=== PATIENT | male | born 1955 | race Caucasian/White ===

== ENCOUNTER 2020-09-21 12:18 | Emergency (ER) | payer MEDICARE, SELFPAY ==
[2020-09-21 12:20] VITALS: BP 139/80; PULSE 62; RESP 16; TEMP 36.2; O2SAT 96; BMI 32.5
--- NOTE | 2020-09-21 12:32 | EKG12_ITS ---
Test Reason : PALPITATIONS Blood Pressure : / mmHG Vent. Rate : 069 BPM Atrial Rate : 069 BPM P-R Int : 192 ms QRS Dur : 098 ms QT Int : 388 ms P-R-T Axes : 056 084 045 degrees QTc Int : 415 ms Normal sinus rhythm Normal ECG Confirmed by CARSON SALAS, OLEGARIO ([id number]), make up editor JEFF ESPINOZA ([id number]) on 09/24/2020 10:56:52 AM Referred By: JAY Confirmed By:OLEGARIO BYRD MD
--- NOTE | 2020-09-21 12:40 | RAD_ITS ---
STUDY: X-RAY CHEST REASON FOR EXAM: Male, 65 years old. Chest pain and palpitations TECHNIQUE: Single AP portable view of the chest. COMPARISON: None. FINDINGS: EKG electrodes are seen. Hyperinflation. Mild increased linear markings at the lung bases suggestive of either linear atelectasis and/or scarring. There is no demonstrated pleural abnormality. Normal size heart. Normal mediastinum and franci. Normal visualized pulmonary arteries. Normal visualized aortic arch and descending thoracic aorta. There are degenerative changes of the visualized thoracic spine. Normal visualized ribs, clavicles, and shoulders. Hiatal hernia. RAD/Chest 1 View (Portable) IMPRESSION: Hyperinflation. Mild increased linear markings at the lung bases suggestive of linear atelectasis and/or scarring. Hiatal hernia. Electronically Signed: Julio Leigh MD at 12:58 EST , Service support ,
--- NOTE | 2020-09-21 12:40 | ED.VIS.GEN ---
History of Present Illness Chief Complaint: Palpitations Detail of Chief Complaint: Patient also complains of chest discomfort and nausea Informant: Patient, Significant Other Onset: Yesterday - Yesterday he complained of palpitations. He thought this was due to the fact that he drinks 2 cups of coffee with caffeine shots. He states he had 600 mg of caffeine. He went on a bicycle ride. He does not develop central chest discomfort. He thought it was his GERD since his doctor would not r Context: Sudden Onset Timing: Intermittent Quality: Indigestion 2 discomfort Location: Central chest Current Severity: - - Presently no discomfort Maximum Severity: Moderate Worsened by: Cycling. Letter Relieved by: Nothing Associated Symptoms: He did experience nausea borderline. Narrative: Patient is a 65-year-old active male with history of GERD and father had cardiac event at age 58 and 68 requiring operative intervention. He is a non-smoker. He bicycle rides daily. Yesterday he did 40 miles. He denies symptoms of claudication. He attributed the discomfort he experiences in his chest while bicycling to GERD. There was no radiation. He denied diaphoresis. He has had nausea and nausea may be independent of the chest discomfort. He denies black or maroon-colored stool. He denies bruising easily. Patient denied upper respiratory symptoms. Patient denied visual, ocular auditory symptoms. Patient did not think much of the chest discomfort because he states it was not what he was told would be heart pain. Prior similar symptoms: Yes - Chest pain intermittently for a couple of weeks Recent Illness/Hospitalization: No - Past Medical History (1) History of gastroesophageal reflux (GERD) Status: Acute Past Medical History - Allergies and Home Meds Allergies/Adverse Reactions: Allergies latex Adverse Reaction (Verified 09/21/20 12:20) Rash Primary Care Physician: Damaris Gee MD [Primary Care Provider] - Surgical History: noncontributory Lives: Spouse/ Significant Other Smoking Status: Never smoker Alcohol: Rare Drugs: None Review of Systems General: Denies: Chills, Fever, Malaise, Subjective Eyes: Denies: Visual changes - bilaterally, Blurred Vision - bilaterally ENT: Denies: Bilateral ear pain, Rhinorrhea, Sore throat Cardiovascular: Reports: Chest pain, Palpitations. Denies: Heart racing Respiratory: Reports: Dyspnea - With extreme exertion. Denies: Cough, Sputum, Dyspnea on exertion, Orthopnea, Paroxysmal nocturnal dyspnea Gastrointestinal: Reports: Nausea. Denies: Abdominal pain, Vomiting, Diarrhea, Constipation, Melena, Hematochezia, -, - Genitourinary: Denies: Dysuria, Hematuria, Frequency Musculoskeletal: Denies: Myalgias, Arthralgias, Neck pain, Back pain, Swelling, Extremity Pain, -, - Skin: Denies: Rash, Wounds Neurological: Denies: Headache, Weakness Hematologic: Denies: Easy bruising, Easy bleeding Physical Exam Vital Signs/Narrative: Vital Signs Temp Pulse Resp BP Pulse Ox 09/21/20 12:20 97.2 F L 62 16 139/80 H 96 Inital Vital Signs reviewed: Yes General: Well nourished, Well developed, No Acute Distress Head: Normocephalic, Atraumatic Eyes: Perrl, EOMI. Negative for: Pale conjunctiva, Scleral icterus ENT: Moist mucous membranes, No rhinorrhea Neck: Supple, Nontender, No lymphadenopathy, No JVD Cardiovascular: Regular rate, Regular rhythm, No murmurs, Normal S1, Normal S2 Respiratory: No distress, CTA bilaterally, Chest nontender Abdomen: Soft, Nontender, Nondistended, Normal bowel sounds, No masses Rectal: Deferred Back: Nontender, Normal Inspection Extremities: Nontender, No edema. Negative for: Tenderness, Edema, Calf Tenderness Skin: Normal color, No rash, Diaphoresis, No Trauma. Negative for: Cyanosis, Jaundice Neurological: Alert, Oriented x3, Cranial nerves II-XII grossly intact, Normal Strength, Normal Sensation, Normal Gait Psychological: Normal affect Diagnostic/Tx/Re-eval Chest X-Ray - ED: 1 View, Read by ED Physician, Normal, Heart, Mediastinum, Bony Structures, No Acute Disease, - - There is evidence of hyper aeration and hiatal hernia. Impressions Chest X-Ray 09/21/20 12:40 IMPRESSION: Hyperinflation. Mild increased linear markings at the lung bases suggestive of linear atelectasis and/or scarring. Hiatal hernia. Electronically Signed: Julio Leigh MD at 12:58 EST , Service support , 09/21/20 12:40 Chest 1 View (Portable) [RAD] Stat Laboratory Results 09/21/20 09/21/20 09/21/20 12:35 12:35 12:35 WBC 5.7 RBC 4.65 Hgb 12.0 L Hct 39.4 L MCV 84.7 MCH 25.8 L MCHC 30.5 L RDW Std Deviation 44.4 H RDW Coeff of Jeremy 14.5 Plt Count 221 MPV 10.1 Immature Gran % (Auto) 0.000 Neut % (Auto) 55.7 Lymph % (Auto) 29.5 Miller % (Auto) 10.1 H Eos % (Auto) 4.2 Baso % (Auto) 0.5 Absolute Neuts (auto) 3.2 Absolute Lymphs (auto) 1.69 Nucleated RBC % 0 Sodium 142 Potassium 4.4 Chloride 108 H Carbon Dioxide 32.0 Anion Gap 2 L BUN 20 H Creatinine 1.16 Estim Creat Clear Calc 62.64 Est GFR (MDRD) Af Amer 81 Est GFR (MDRD) Non-Af 67 BUN/Creatinine Ratio 17.2 Glucose 86 Calcium 9.4 Troponin I < 0.015 B-Natriuretic Peptide 12.6 - EKG Initial EKG Interpretation: Sinus Rhythm - Normal sinus rhythm with a ventricular rate of 69. AL interval 292 ms. QS duration is 98 ms. QT duration 388 ms. [place] is normal. The EKG is normal. - Medical Decision Making Tach patient's palpitations or irregular heartbeat probably is due to the significant amount of caffeine he ingested prior to cycling. The chest discomfort with extreme exertion may represent exertional angina. This may also represent other causes i.e. GERD, pulmonary. Work-up included EKG, chest x-ray, CBC to rule out anemia, BMP to assess renal function and troponin. 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 ED Disposition - Plan for ED Patient: Disposition: Home or Assisted Living Diagnosis: Chest pain, Palpitations with regular cardiac rhythm Instructions: ED Palpitations, ED Chest Pain, Uncertain Cause Referrals: Damaris Gee MD [Primary Care Provider] - 3-5 Days
[2020-09-21 12:42] LABS: Absolute Lymphocyte Count 1.69 X10^3/uL (0.83-4.51); Absolute Neutrophil Count 3.2 X10^3/uL (2.0-7.7); Basophil# 0.03 X10^3/uL; Basophil% 0.5 % (0-1); Eosinophil# 0.24 X10^3/uL; Eosinophils% 4.2 % (0-5); Hematocrit 39.4 % (40-54); Lymphocyte # 1.69 X10^3/ul (4.0); Lymphocyte % 29.5 % (19-41); Mean Corp Hgb Conc 30.5 g/dL (32-36); Mean Corpuscular Hgb 25.8 pg (27.0-32.0); Mean Corpuscular Volume 84.7 fL (80-94); Mean Platelet Vol. 10.1 fl (6.2-12.0); Monocyte# 0.58 X10^3/uL; Monocyte% 10.1 % (0-10); NRBC Flagged by Analyzer 0 % (0-5); Neutrophil # 3.19 X10^3/uL (2.7-7.7); Neutrophil % 55.7 % (47-70); Platelet Count 221 K/mm3 (150-450); RBC Distribution Width CV 14.5 % (11.6-14.6); RBC Distribution Width SD 44.4 fl (35.1-43.9); Red Blood Count 4.65 M/mm3 (4.6-6.2); White Blood Count 5.7 K/mm3 (4.4-11.0)
[2020-09-21 13:04] LABS: Anion Gap 2 (5-15); BUN 20 mg/dL (7-18); BUN/Creat Ratio 17.2 RATIO (10-20); Calcium,Total 9.4 mg/dL (8.5-10.1); Chloride 108 mmol/L (98-107); Creatinine, Serum 1.16 mg/dL (0.70-1.30); EST Glomerular Filtration Rate 67 mL/min (>60); Est Glom Filt Rate - Afr Amer 81 mL/min (>60); Estimated Creatinine Clearance 62.64 ml/min; Glucose 86 mg/dL (74-106); Potassium 4.4 mmol/L (3.5-5.1); Sodium Level 142 mmol/L (136-145)
[2020-09-21 13:28] LABS: BNP,B-Type NATRIURETIC PEPTIDE 12.6 pg/mL (0-100)
[2020-09-21 14:15] VITALS: BP 119/76; PULSE 57; RESP 14; O2SAT 95
== END 2020-09-21 14:15 | disposition home or self-care (01) ==
PROVIDERS: Emergency Provider Emergency Medicine; PCP Internal Medicine
DX: R00.2 Palpitations (principal); R07.89 Other chest pain; R06.00 Dyspnea, unspecified; K21.9 Gastro-esophageal reflux disease without esophagitis
CPT/HCPCS: 71045; 80048; 83880; 84484; 85025; 93005; 99284; A4216

== ENCOUNTER 2021-06-07 10:19 | Emergency (ER) | payer MEDICARE, SELFPAY ==
[2021-06-07 10:20] VITALS: BP 161/84; PULSE 61; RESP 18; TEMP 36.6; O2SAT 99; BMI 33.6
--- NOTE | 2021-06-07 10:36 | EKG12_ITS ---
Test Reason : SOB Blood Pressure : / mmHG Vent. Rate : 059 BPM Atrial Rate : 059 BPM P-R Int : 198 ms QRS Dur : 096 ms QT Int : 406 ms P-R-T Axes : 052 088 043 degrees QTc Int : 401 ms Sinus bradycardia Otherwise normal ECG Confirmed by TRINA SALAS, RAJIV ([id number]), editor managing director JEFF ESPINOZA ([id number]) on 06/10/2021 10:59:32 AM Referred By: ANGELA Confirmed By:RAJIV MENA MD
--- NOTE | 2021-06-07 10:36 | CT_ITS ---
STUDY: CT CHEST WITHOUT CONTRAST REASON FOR EXAM: Male, 66 years old. Aspiration. Chest pain with deep inspiration. RADIATION DOSAGE (If Supplied By Facility): CTDIvol = ( 15.44 ) mGy, DLP = ( 617.41 ) mGycm TECHNIQUE: Transaxial imaging was performed without the administration of intravenous contrast material. Multiplanar coronal and sagittal images were reformatted. Individualized dose optimization techniques were used for this CT. COMPARISON: None. FINDINGS: Mild atelectasis and/or early infiltrate at the right lung base. Mild increased linear markings at the left lung base. There is no demonstrated pleural abnormality. There are calcifications of the coronary arteries. There are multiple small lymph nodes within the mediastinum, which are normal in size and morphology most compatible with reactive lymph hyperplasia. Normal hilar regions. Normal unenhanced pulmonary arteries. Normal aorta arch and descending thoracic aorta. There are degenerative changes of the thoracic spine. Moderate sized hiatal hernia. CT/Chest without Contrast IMPRESSION: Atelectasis and/or early infiltrate in the posterior medial segment of the right lower lobe. Mild increased linear markings at the left lung base suggestive of linear scarring. Hiatal hernia. Electronically Signed: Julio Leigh MD at 11:22 EDT , Service support ,
--- NOTE | 2021-06-07 10:37 | EDS_ITS ---
HPI History of Present Illness Chief Complaint: Shortness of Breath Detail of Chief Complaint: Coughing after aspiration Informant: patient Onset/Context/Timing Onset: Yesterday Current Severity: Moderate Maximum Severity: Moderate Narrative Narrative: Patient presents secondary to continued coughing and shortness of breath after aspirating. Patient states he started choking while eating dinner last evening. He feels like he aspirated. He has pain in his chest from coughing and states he has to breathe and short breaths. He states he cannot take a deep breath without coughing. He called his PCPs office today who directed him to the emergency room. He denies fever or chills. [facility] Medical History Depression GERD (gastroesophageal reflux disease) High cholesterol Home Medications atorvastatin 80 mg PO DAILY 09/21/20 [History Last Taken Unknown] bupropion HCl 450 mg PO DAILY 09/21/20 [History Last Taken Unknown] escitalopram oxalate 20 mg PO DAILY 09/21/20 [History Last Taken Unknown] wnxirjqv-kec-HS-lycopen-lutein 1 ea PO DAILY 09/21/20 [History Last Taken Unknown] omeprazole magnesium 20 mg PO DAILY 09/21/20 [History Last Taken Unknown] amoxicillin-pot clavulanate [Augmentin] 1 tab PO BID #20 tab 06/07/21 [Rx Last Taken Unknown] metronidazole 500 mg PO Q8H 10 Days #30 tab 06/07/21 [Rx Last Taken Unknown] Allergy/AdvReac Type Severity Reaction Status Date / Time latex AdvReac Rash Verified 06/07/21 10:22 Social History Smoking Status: Never smoker ROS ROS ED Constitutional Constitutional ED: Denies chills or fever(s) Eyes Eyes: Denies change in vision ENT ENT ED: Denies sore throat Cardiovascular Cardiovascular: Reports chest pain Respiratory/Chest Respiratory/Chest: Reports cough and dyspnea Gastrointestinal Gastrointestinal: Denies abdominal pain, diarrhea, nausea or vomiting Genitourinary Genitourinary ED: Denies dysuria Musculoskeletal Musculoskeletal: Denies back pain Integumentary Denies rash Neurologic Neurologic: Denies headache(s) or weakness Allergic/Immunologic Allergic/Immunologic ED: Denies urticaria EXAM Physical Exam Const Vital Signs: 06/07/21 10:20 06/07/21 10:47 Temperature 97.8 F Temperature Source Temporal Pulse Rate 61 Respiratory Rate 18 Respiratory Effort Normal Non-Labored Respiratory Depth Normal Respiratory Pattern Normal Blood Pressure 161/84 H Blood Pressure Mean 109 Pulse Ox 99 Oxygen Delivery Method Room Air Room Air Positive well nourished and well developed General Appearance ED: well developed HEENT Reports moist mucous membranes Eyes PERRL and EOMs intact bilaterally Chest Wall inspection of chest normal and palpation of chest normal Resp normal respiratory effort and clear to auscultation bilaterally Cardio regular rate and regular rhythm GI normal to inspection, nondistended, normoactive bowel sounds and non-tender Palpation: soft Extremity normal to inspection Neuro oriented x3 Sensorium / Orientation: alert Psych mental status grossly normal Skin no rashes or lesions noted MDM MDM MDM Narrative Medical decision making narrative: EKG was obtained. CT chest ordered. Radiography Diagnostic Testing: Clinical Impression(s) from Imaging Studies Chest CT 06/07/21 10:36 IMPRESSION: Atelectasis and/or early infiltrate in the posterior medial segment of the right lower lobe. Mild increased linear markings at the left lung base suggestive of linear scarring. Hiatal hernia. Electronically Signed: Julio Leigh MD at 11:22 EDT , Service support , EKG Initial EKG: Attestation: I personally reviewed and interpreted this EKG as follows: Interpretation: Sinus Bradycardia (Sinus bradycardia 59 bpm. No acute ischemia.) Treatment and Re-Evaluation Comments:: CT chest reveals atelectasis or early infiltrate in the right lower lobe. Patient be treated with Augmentin and Flagyl. No obvious foreign bodies noted in the main airways. Return instructions are provided. Discharge Plan Triage Chief Complaint: Shortness of Breath ED Provider: Alexsandra Hannah Dx/Rx/DC Orders Clinical Impression: Aspiration pneumonia Instructions: ED Pneumonia (Adult) Prescriptions: New amoxicillin-pot clavulanate [Augmentin] 875-125 mg tablet 1 tab PO BID Qty: 20 RF: 0 metronidazole 500 mg tablet 500 mg PO Q8H 10 Days Qty: 30 RF: 0 No Action atorvastatin 80 MG tablet 80 mg PO DAILY RF: 0 escitalopram oxalate 20 MG tablet 20 mg PO DAILY RF: 0 omeprazole magnesium 20 MG tablet,delayed release (DR/EC) 20 mg PO DAILY RF: 0 bupropion HCl 150 MG tablet extended release 24 hr 450 mg PO DAILY RF: 0 eoxkfitw-ssc-SO-lycopen-lutein 1 EACH tablet 1 ea PO DAILY RF: 0 Primary Care Provider: Damaris Gee Referrals: Damaris Gee MD [Primary Care Provider] - 1-2 Weeks Disposition Disposition: Home, Self Care
[2021-06-07 10:47] VITALS: O2SAT 98
[2021-06-07 12:36] VITALS: BP 122/85; PULSE 55; RESP 16; O2SAT 98
[2021-06-07] MEDS: Amox/Clavulanate 875 MG Tablet PO (12:36)
[2021-06-07] MEDS: metroNIDAZOLE 500 MG Tablet PO (12:36)
== END 2021-06-07 12:37 | disposition home or self-care (01) ==
PROVIDERS: Emergency Provider Emergency Medicine; PCP Internal Medicine
DX: J69.0 Pneumonitis due to inhalation of food and vomit (principal); E78.00 Pure hypercholesterolemia, unspecified; K21.9 Gastro-esophageal reflux disease without esophagitis; F32.A Depression, unspecified; Z79.899 Other long term (current) drug therapy
CPT/HCPCS: 71250; 93005; 99285

== ENCOUNTER 2022-02-03 09:15 | Emergency (ER) | payer MEDICARE, SELFPAY ==
[2022-02-03 09:16] VITALS: BP 156/82; PULSE 71; RESP 20; TEMP 37.3; O2SAT 96; BMI 32.5
[2022-02-03 09:19] VITALS: BP 156/82; PULSE 69; RESP 14; TEMP 37.3; O2SAT 96
--- NOTE | 2022-02-03 09:28 | EX.ED.DYSGE1 ---
HPI History of Present Illness Chief Complaint: Confusion Informant: patient and spouse/S.O. Narrative Narrative: 67-year-old male presenting to the emergency department with a chief complaint of confusion. Patient traveled to [facility] last week and returned home yesterday. While traveling he tested positive for COVID-19. His was previously positive earlier in the week. Patient notes a cough some nasal congestion. What concerns him the most is confusion. He called the nurses line and while he was doing well they did note some confusion. Patient reports being in a fog light state. He states that he gets pneumonia quite frequently and would like some broad-spectrum antibiotics because the bacteria typically goes from his nose into his bronchial tubes. [facility] Medical History Back pain COVID Depression GERD (gastroesophageal reflux disease) High cholesterol Home Medications atorvastatin 80 mg tablet 80 mg PO DAILY 09/21/20 [History Last Taken Unknown] bupropion HCl 150 mg 24 hr tablet, extended release 450 mg PO DAILY 09/21/20 [History Last Taken Unknown] escitalopram oxalate 20 mg tablet 20 mg PO DAILY 09/21/20 [History Last Taken Unknown] eyopephr-lfq-awviw acid 300 mcg-lycopene 600 mcg-lutein 300 mcg tablet 1 ea PO DAILY 09/21/20 [History Last Taken Unknown] omeprazole magnesium 20 mg tablet,delayed release 20 mg PO DAILY 09/21/20 [History Last Taken Unknown] amoxicillin 875 mg-potassium clavulanate 125 mg tablet (Augmentin) 1 tab PO BID #20 tabs 06/07/21 [Rx Last Taken Unknown] metronidazole 500 mg tablet 500 mg PO Q8H 10 days #30 tabs 06/07/21 [Rx Last Taken Unknown] Allergy/AdvReac Type Severity Reaction Status Date / Time latex AdvReac Rash Verified 02/03/22 09:21 Social History (Updated 02/03/22 @ 09:[address] Ángel Osborne DO) Smoking Status: Never smoker substance use type: does not use ROS ROS ED Constitutional Constitutional ED: Reports chills and fever(s); Denies weight loss Eyes Eyes: Denies change in vision or diplopia ENT ENT ED: Reports rhinorrhea; Denies ear pain or sore throat Cardiovascular Cardiovascular: Denies chest pain, orthopnea, palpitations or racing heartbeat Respiratory/Chest Respiratory/Chest: Reports cough; Denies dyspnea or orthopnea Gastrointestinal Gastrointestinal: Denies abdominal pain, diarrhea, nausea or vomiting Genitourinary Genitourinary ED: Denies dysuria, hematuria or urinary frequency Musculoskeletal Musculoskeletal: Denies arthralgias or myalgias Integumentary Denies abscess or rash Neurologic Neurologic: Reports other Details: confusion ; Denies headache(s) or weakness Psychiatric Psychiatric: Denies anxiety, depression, suicidal ideation or suicidal thoughts Endocrine Endocrinology: Denies polydipsia, polyphagia or polyuria Allergic/Immunologic Allergic/Immunologic ED: Denies mouth swelling, tongue swelling or urticaria EXAM Physical Exam Const Vital Signs: 02/03/22 09:16 02/03/22 09:19 Temperature 99.1 F 99.1 F Temperature Source Oral Oral Pulse Rate 71 69 Respiratory Rate 20 H 14 Blood Pressure 156/82 H 156/82 H Blood Pressure Mean 106 106 Pulse Ox 96 96 Oxygen Delivery Method Room Air Room Air Positive well nourished and well developed General Appearance ED: well developed HEENT Reports normocephalic, head/scalp atraumatic and moist mucous membranes Eyes PERRL and EOMs intact bilaterally Neck no lymphadenopathy, supple and no JVD Resp normal respiratory effort and clear to auscultation bilaterally Cardio regular rate, regular rhythm and no murmurs GI normal to inspection, nondistended, normoactive bowel sounds and non-tender Palpation: soft Back/Spine no CVA tenderness and normal ROM Extremity normal to inspection General Extremety ED: Negative for edema General Extremity: Negative for edema Neuro oriented x3 and CN's II-XII intact bilaterally Sensorium / Orientation: alert Motor Exam: strength 5/5 throughout Psych mental status grossly normal Mood & Affect: Negative for depressed or tearful Skin no rashes or lesions noted and no wounds MDM MDM MDM Narrative Medical decision making narrative: My interpretation of the chest x-ray is no acute process. Radiology agrees. Clinically the patient has COVID-19 and reports mild confusion. He is ANO x3. Oxygen levels are normal. I think the patient can be safely discharged home. Following up with primary care as needed return if worsening or concerns Radiography Diagnostic Testing: Clinical Impression(s) from Imaging Studies Chest X-Ray 02/03/22 09:35 IMPRESSION: Normal x-ray examination of the chest. Electronically Signed: Gavino Wagner MD at 10:09 EDT , Discharge Plan Triage Chief Complaint: Confusion ED Provider: Ángel Osborne Dx/Rx/DC Orders Prescriptions: No Action atorvastatin 80 MG tablet 80 mg PO DAILY escitalopram oxalate 20 MG tablet 20 mg PO DAILY omeprazole magnesium 20 MG tablet,delayed release (DR/EC) 20 mg PO DAILY bupropion HCl 150 MG tablet extended release 24 hr 450 mg PO DAILY oaosyzhg-ywb-CG-lycopen-lutein 1 EACH tablet 1 ea PO DAILY amoxicillin-pot clavulanate [Augmentin] 875-125 mg tablet 1 tab PO BID Qty: 20 0RF metronidazole 500 mg tablet 500 mg PO Q8H 10 Days Qty: 30 0RF Primary Care Provider: Damaris Gee Referrals: Damaris Gee MD [Primary Care Provider] -
--- NOTE | 2022-02-03 09:35 | RAD_ITS ---
STUDY: X-RAY CHEST REASON FOR EXAM: Male, 67 years old. cough TECHNIQUE: Single AP portable view of the chest. COMPARISON: 09/21/2020 FINDINGS: The lungs are clear and expanded. There is no demonstrated pleural abnormality. Normal size heart. Normal mediastinum and franci. Normal visualized pulmonary arteries. Normal visualized aortic arch and descending thoracic aorta. Normal visualized thoracic spine. Normal visualized ribs, clavicles, and shoulders. There is no demonstrated abnormality of the visualized soft tissue structures of the upper abdomen. RAD/Chest 1 View (Portable) IMPRESSION: Normal x-ray examination of the chest. Electronically Signed: Gavino Wagner MD at 10:09 EDT ,
[2022-02-03 10:21] VITALS: BP 132/78; PULSE 65; RESP 17; O2SAT 96
== END 2022-02-03 10:41 | disposition home or self-care (01) ==
PROVIDERS: Emergency Provider Emergency Medicine; PCP Internal Medicine; Visit Provider Emergency Medicine
DX: U07.1 COVID-19 (principal); E78.00 Pure hypercholesterolemia, unspecified; K21.9 Gastro-esophageal reflux disease without esophagitis; F32.A Depression, unspecified; Z79.899 Other long term (current) drug therapy
CPT/HCPCS: 71045; 99282; A4216

== ENCOUNTER 2023-01-01 12:00 | Outpatient (RCR) | payer MEDICARE, SELFPAY ==
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
--- NOTE | 2023-03-31 10:34 | HP.PT.NRP ---
Patient Information Patient Information: NILA FARLEY was seen in my office for initial evaluation on 11/11/22. The following Plan of Care was established for this patient: POC Established Initial Frequency: 2x /Week Initial Duration: 4 Weeks Anticipated Interventions Patient/Client Instruction: Educate patient on: Condition and Plan of Care For the Purpose of:: To decrease pain, To improve muscle performance and motor function, To increase tolerance to activity/condition/position, To improve ability of physical actions for home/community/work/leisure, To improve endurance, To improve balance, To improve ability to perform tasks related to life management and To improve tolerance to ADL's Therapeutic Exercise to Include: Strength training, Power training, Endurance training, Balance training, Body mechanics, Postural training and Flexibilty training For the Purpose of:: To improve muscle performance and motor function, To improve ability to perform ADL's, To increase tolerance to activity/condition/position, To improve ability of physical actions for home/community/work/leisure, To increase flexibility/ROM, To improve endurance, To improve balance and To improve tolerance to ADL's Last Seen Last Seen: This patient was last seen in our office . Pertinent comments regarding their Physical therapy will appear below: Patient was seen for PT for weakness for strengthening thus is d/c At this point I will be discontinuing this patient from physical therapy. I would be happy to see this patient again in the future if found appropriate by the physician. Thank you! Kash Cronin, PT, Cert MDT, OCS Balance/Gait/Functional tests Balance/Special Test Scores Functional Gait Assessment Score: 29 % Disability: 3.3400 CATSIB Score (Max score 120 seconds): 120 Lower Extremity Functional Score: 54 30 Second Chair Rise Test Seconds: 19
== END 2023-01-01 19:00 | disposition home or self-care (01) ==
LOC: PT 12:00
PROVIDERS: PCP Internal Medicine
DX: C15.9 Malignant neoplasm of esophagus, unspecified (principal); R53.1 Weakness
CPT/HCPCS: 97110; 97162

== ENCOUNTER 2023-05-19 23:38 | Emergency (ER) | payer MEDICARE, SELFPAY ==
[2023-05-19 23:41] VITALS: BP 111/73; PULSE 57; RESP 14; TEMP 35.1; O2SAT 95; BMI 26.4
[2023-05-19 23:59] VITALS: PULSE 56; RESP 14; O2SAT 98
[2023-05-20] VITALS (16 sets, daily range): BP systolic 106–114; BP diastolic 47–77; PULSE 51–55; RESP 11–18; O2SAT 95–99
--- NOTE | 2023-05-20 00:06 | EKG12_ITS ---
Test Reason : LOW BLOOD SUGAR Blood Pressure : / mmHG Vent. Rate : 054 BPM Atrial Rate : 054 BPM P-R Int : 216 ms QRS Dur : 102 ms QT Int : 466 ms P-R-T Axes : 062 073 041 degrees QTc Int : 441 ms Sinus bradycardia with 1st degree A-V block Otherwise normal ECG When compared with ECG of 07-JUN-2021 10:47, No significant change was found Confirmed by CARSON SALAS, OLEGARIO ([id number]), staff editor [address] ([id number]) on 05/21/2023 2:10:43 PM Referred By: SIM Confirmed By:OLEGARIO BYRD MD
[2023-05-20 00:13] LABS: Absolute Lymphocyte Count 1.71 X10^3/uL (0.83-4.51); Absolute Neutrophil Count 5.6 X10^3/uL (2.0-7.7); Basophil# 0.06 X10^3/uL; Basophil% 0.7 % (0-1); Eosinophil# 0.24 X10^3/uL; Eosinophils% 2.9 % (0-5); Hematocrit 42.3 % (40-54); Hemoglobin 13.3 g/dL (13.0-16.5); Lymphocyte # 1.71 X10^3/ul (0.83-4.51); Lymphocyte % 20.5 % (19-41); Mean Corp Hgb Conc 31.4 g/dL (32-36); Mean Corpuscular Hgb 30.8 pg (27.0-32.0); Mean Corpuscular Volume 97.9 fL (80-94); Mean Platelet Vol. 10.7 fl (6.2-12.0); Monocyte% 8.4 % (0-10); NRBC Flagged by Analyzer 0 % (0-5); Neutrophil % 67.1 % (47-70); Platelet Count 152 K/mm3 (150-450); RBC Distribution Width CV 12.5 % (11.6-14.6); RBC Distribution Width SD 44.8 fl (35.1-43.9); Red Blood Count 4.32 M/mm3 (4.6-6.2); White Blood Count 8.3 K/mm3 (4.4-11.0)
[2023-05-20 00:14] LABS: Bedside Glucose 150 mg/dL (74-106)
--- NOTE | 2023-05-20 00:30 | EX.ED.DYSGE1 ---
HPI History of Present Illness Chief Complaint: Hypoglycemia Informant: patient, spouse/S.O. and EMS Narrative Narrative: Patient is a 68-year-old male with past medical history of GERD requiring esophagectomy as well as hyperlipidemia. He states because of his previous esophagectomy he does not eat much throughout the day. He does state that today he went out for a long bike ride and after returning home felt very cold and cannot get warm but he states after his visit to be he did not eat. states that she was gone since about 1 in the afternoon and when she returned home he was pale and diaphoretic and seemed to have a different mental status so therefore EMS was called. EMS states when they arrived they checked his blood sugar and it was low at 43 and therefore they gave him glucose and his blood sugar improved to 105 prior to arrival and reports his mental status is not baseline. Patient denies any history of diabetes or insulin use and states he did not take any type of antidiabetic/insulin medication today. PFSH [facility] Medical History Back pain COVID Depression GERD (gastroesophageal reflux disease) High cholesterol Home Medications atorvastatin 80 mg tablet 80 mg PO DAILY 09/21/20 [History Last Taken Unknown] bupropion HCl 150 mg 24 hr tablet, extended release 450 mg PO DAILY 09/21/20 [History Last Taken Unknown] escitalopram oxalate 20 mg tablet 20 mg PO DAILY 09/21/20 [History Last Taken Unknown] tsehobkt-ld-clnmv 300 mcg-K 60 mcg-lycop 600 mcg-lutein 300 mcg tablet 1 ea PO DAILY 09/21/20 [History Last Taken Unknown] omeprazole magnesium 20 mg tablet,delayed release 20 mg PO DAILY 09/21/20 [History Last Taken Unknown] amoxicillin 875 mg-potassium clavulanate 125 mg tablet (Augmentin) 1 tab PO BID #20 tabs 06/07/21 [Rx Last Taken Unknown] metronidazole 500 mg tablet 500 mg PO Q8H 10 days #30 tabs 06/07/21 [Rx Last Taken Unknown] Allergy/AdvReac Type Severity Reaction Status Date / Time latex AdvReac Rash Verified 02/03/22 09:21 Surgical History (Updated 05/19/23 @ 23:47 by Ritchie Jovel) H/O esophagectomy Social History (Updated 02/03/22 @ 09:[address] Ángel Osborne, DO) Smoking Status: Never smoker substance use type: does not use ROS ROS ED Constitutional Constitutional ED: Reports sweats; Denies chills or fever(s) ENT ENT ED: Denies sore throat Cardiovascular Cardiovascular: Denies chest pain, palpitations or racing heartbeat Respiratory/Chest Respiratory/Chest: Denies cough or dyspnea Gastrointestinal Gastrointestinal: Reports nausea; Denies abdominal pain, diarrhea or vomiting Genitourinary Genitourinary ED: Denies dysuria Musculoskeletal Musculoskeletal: Denies myalgias Integumentary Denies rash Neurologic Neurologic: Reports weakness; Denies headache(s) Psychiatric Psychiatric: Denies suicidal ideation or suicidal thoughts Hematologic/Lymphatic Hematologic/Lymphatic: Denies easy bleeding or easy bruising EXAM Physical Exam Const Vital Signs: 05/19/23 23:41 05/19/23 23:48 05/20/23 00:40 Temperature 95.1 F L Temperature Source Temporal Pulse Rate 57 L 54 L Respiratory Rate 14 12 Respiratory Effort Normal Respiratory Pattern Normal Blood Pressure 111/73 108/47 L Blood Pressure Mean 85 67 Pulse Ox 95 98 Oxygen Delivery Method Room Air Room Air 05/20/23 02:03 05/19/23 23:59 05/20/23 00:00 Temperature Temperature Source Pulse Rate 55 L 56 L 55 L Respiratory Rate 14 14 17 Respiratory Effort Respiratory Pattern Blood Pressure 111/67 112/70 Blood Pressure Mean 81 83 Pulse Ox 98 98 98 Oxygen Delivery Method 05/20/23 00:10 05/20/23 00:15 05/20/23 00:20 Temperature Temperature Source Pulse Rate 54 L 54 L 51 L Respiratory Rate 14 17 14 Respiratory Effort Respiratory Pattern Blood Pressure 114/68 Blood Pressure Mean 82 Pulse Ox 99 97 96 Oxygen Delivery Method Room Air 05/20/23 00:30 05/20/23 00:40 05/20/23 00:45 Temperature Temperature Source Pulse Rate 54 L 52 L 52 L Respiratory Rate 18 17 12 Respiratory Effort Respiratory Pattern Blood Pressure 108/77 108/47 L Blood Pressure Mean 88 65 Pulse Ox 98 97 98 Oxygen Delivery Method 05/20/23 00:50 05/20/23 01:00 05/20/23 01:10 Temperature Temperature Source Pulse Rate 55 L 53 L 55 L Respiratory Rate 17 17 14 Respiratory Effort Respiratory Pattern Blood Pressure 106/70 Blood Pressure Mean 82 Pulse Ox 97 99 96 Oxygen Delivery Method 05/20/23 01:20 05/20/23 01:30 05/20/23 01:40 Temperature Temperature Source Pulse Rate 55 L 53 L 53 L Respiratory Rate 11 L 15 15 Respiratory Effort Respiratory Pattern Blood Pressure Blood Pressure Mean Pulse Ox 98 95 Oxygen Delivery Method 05/20/23 01:50 05/20/23 02:00 Temperature Temperature Source Pulse Rate 51 L 51 L Respiratory Rate 14 14 Respiratory Effort Respiratory Pattern Blood Pressure Blood Pressure Mean Pulse Ox 96 95 Oxygen Delivery Method Positive well nourished and well developed General Appearance ED: well developed; Negative for pallor HEENT Reports moist mucous membranes HEENT Narrative: No signs of infection noted in the posterior pharynx No airway edema or compromise Eyes PERRL and EOMs intact bilaterally General Eye ED: Negative for pale conjunctiva or scleral icterus Neck supple Neck Narrative: No nuchal rigidity or meningeal signs present Resp normal respiratory effort and clear to auscultation bilaterally Cardio regular rhythm Rate: bradycardia and other Other Details: Bradycardic rate with regular rhythm No murmurs rubs or gallops Radial and carotid pulses are equal and symmetric GI normal to inspection, nondistended, normoactive bowel sounds, non-tender, non-distended and no masses GI Narrative: No voluntary guarding or rigidity. Pulsatile mass or fluid wave. Auscultation: normoactive bowel sounds Palpation: soft Extremity normal to inspection Neuro oriented x3, CN's II-XII intact bilaterally and no sensory deficits noted Neuro Narrative: Cranial nerves II through XII are grossly intact there are no focal neurologic deficits. No pronator drift no dysmetria no truncal ataxia. NIH stroke scale score of 0 Sensorium / Orientation: alert Motor Exam: strength 5/5 throughout Psych Psych Narrative: Patient has a flat affect Skin no rashes or lesions noted General Skin Exam: Negative for jaundice or pallor MDM MDM MDM Narrative Medical decision making narrative: Patient presented to the ER awake and alert and EMS reported that his blood sugar went from 43-105 after administration of of oral glucose. Therefore his symptoms and history are most consistent with a hypoglycemic event. However as altered mental status with diaphoresis could also be related to acute coronary syndrome or from potential cardiac dysrhythmia or severe anemia I did elect to perform basic laboratory studies. Labs revealed no clinically significant findings. Patient's blood sugar was 156 on laboratory draw and on recheck it was remaining stable with a value just prior to discharge of approximately 135. Therefore at this time as patient's work-up is negative going against insulinoma or exogenous insulin use and his blood sugar has maintained stable for the past 2 hours in the ER he is otherwise safe for discharge History & Record Review Discussion w/independent historian: EMS personnel, Patient and Significant other Lab Data Attestation: I reviewed the patient's lab results. Labs: Laboratory Results - last 24 hr 05/19/23 05/20/23 05/20/23 23:52 00:00 00:41 WBC 8.3 RBC 4.32 L Hgb 13.3 Hct 42.3 MCV 97.9 H MCH 30.8 MCHC 31.4 L RDW Std Deviation 44.8 H RDW Coeff of Jeremy 12.5 Plt Count 152 MPV 10.7 Immature Gran % (Auto) 0.400 Neut % (Auto) 67.1 Lymph % (Auto) 20.5 Elliott % (Auto) 8.4 Eos % (Auto) 2.9 Baso % (Auto) 0.7 Absolute Neuts (auto) 5.6 Absolute Lymphs (auto) 1.71 Nucleated RBC % 0 Sodium 144 Potassium 4.3 Chloride 111 H Carbon Dioxide 29.0 Anion Gap 4 L BUN 27 H Creatinine 0.93 Estim Creat Clear Calc 74.97 Est GFR (MDRD) Af Amer 103 Est GFR (MDRD) Non-Af 85 BUN/Creatinine Ratio 29.0 H Glucose 156 H Calcium 9.3 Total Bilirubin 0.20 Direct Bilirubin 0.08 AST 27 ALT 58 Alkaline Phosphatase 67 Troponin I High Sens 8 Total Protein 6.1 L Albumin 3.3 Globulin 2.8 Lipase 34 POC Glucose 150 H 135 H 05/20/23 01:36 WBC RBC Hgb Hct MCV MCH MCHC RDW Std Deviation RDW Coeff of Jeremy Plt Count MPV Immature Gran % (Auto) Neut % (Auto) Lymph % (Auto) Elliott % (Auto) Eos % (Auto) Baso % (Auto) Absolute Neuts (auto) Absolute Lymphs (auto) Nucleated RBC % Sodium Potassium Chloride Carbon Dioxide Anion Gap BUN Creatinine Estim Creat Clear Calc Est GFR (MDRD) Af Amer Est GFR (MDRD) Non-Af BUN/Creatinine Ratio Glucose Calcium Total Bilirubin Direct Bilirubin AST ALT Alkaline Phosphatase Troponin I High Sens Total Protein Albumin Globulin Lipase POC Glucose 131 H Discharge Plan Triage Chief Complaint: Hypoglycemia ED Provider: Mani Ricardo Dx/Rx/DC Orders Clinical Impression: Hypoglycemia, History of hyperlipidemia Instructions: ED Hypoglycemia, Nondiabetic Prescriptions: No Action atorvastatin 80 MG tablet 80 mg PO DAILY escitalopram oxalate 20 MG tablet 20 mg PO DAILY omeprazole magnesium 20 MG tablet,delayed release (DR/EC) 20 mg PO DAILY bupropion HCl 150 MG tablet extended release 24 hr 450 mg PO DAILY [id number] 1 EACH tablet 1 ea PO DAILY amoxicillin-pot clavulanate [Augmentin] 875-125 mg tablet 1 tab PO BID Qty: 20 0RF metronidazole 500 mg tablet 500 mg PO Q8H 10 Days Qty: 30 0RF Primary Care Provider: Damaris Gee Referrals: Damaris Gee MD [Primary Care Provider] - Disposition Disposition: Home, Self Care Discharge Date/Time: 05/20/23 02:12
[2023-05-20 00:59] LABS: Bedside Glucose 135 mg/dL (74-106)
[2023-05-20 01:05] LABS: AST(SGOT) 27 U/L (15-37); Alanine Aminotransfer ALT/SGPT 58 U/L (16-61); Albumin, Serum 3.3 g/dL (3.2-5.0); Alkaline Phosphatase 67 U/L (45-117); Anion Gap 4 (5-15); BUN 27 mg/dL (7-18); Bilirubin, Direct 0.08 mg/dL (0.00-0.30); Calcium,Total 9.3 mg/dL (8.5-10.1); Chloride 111 mmol/L (98-107); Creatinine, Serum 0.93 mg/dL (0.70-1.30); EST Glomerular Filtration Rate 85 mL/min (>60); Est Glom Filt Rate - Afr Amer 103 mL/min (>60); Estimated Creatinine Clearance 74.97 ml/min; Globulin 2.8 g/dL (2.2-4.2); Glucose 156 mg/dL (74-106); Lipase 34 U/L (13-75); Potassium 4.3 mmol/L (3.5-5.1); Protein, Total 6.1 g/dL (6.4-8.2); Sodium Level 144 mmol/L (136-145); Troponin-I HS 8 pg/mL (3.0-78.0)
[2023-05-20 01:55] LABS: Bedside Glucose 131 mg/dL (74-106)
== END 2023-05-20 02:12 | disposition home or self-care (01) ==
PROVIDERS: Emergency Provider Emergency Medicine; PCP Internal Medicine; Visit Provider Emergency Medicine
DX: E16.2 Hypoglycemia, unspecified (principal); R41.82 Altered mental status, unspecified; E78.00 Pure hypercholesterolemia, unspecified; K21.9 Gastro-esophageal reflux disease without esophagitis
CPT/HCPCS: 80048; 80076; 82962; 83690; 84484; 85025; 93005; 99285; A4216

== ENCOUNTER → 2023-05-26 | Outpatient (CLI) | payer MEDICARE, SELFPAY ==
[2023-05-26] MEDS: Zolpidem Tartrate 5 MG Tablet 10 MG PO (21:44)
== END | disposition home or self-care (01) ==
LOC: SL 20:04
PROVIDERS: PCP Internal Medicine; Referring Provider Psychiatry & Neurology Sleep Medicine; Visit Provider Psychiatry & Neurology Sleep Medicine
DX: G47.33 Obstructive sleep apnea (adult) (pediatric) (principal); G47.00 Insomnia, unspecified; G47.52 REM sleep behavior disorder; F51.04 Psychophysiologic insomnia
CPT/HCPCS: 95810